=== PATIENT | female | born 1975 | race Caucasian/White ===

== ENCOUNTER 2024-02-19 11:50 | Emergency (ER) | payer SELFPAY ==
[~2024-02-19] VITALS: Ht 172.7 cm; Wt 100.0 kg
[2024-02-19 11:53] VITALS: O2SAT 98
[2024-02-19 12:12] VITALS: TEMP 36.66960
[2024-02-19 14:01] VITALS: BP 135/80; PULSE 85; RESP 19; O2SAT 97
== END 2024-02-19 14:02 | disposition home or self-care (01) ==
LOC: ER 11:50
DX: F10.129 Alcohol abuse with intoxication, unspecified (principal); Y90.9 Presence of alcohol in blood, level not specified
CPT/HCPCS: 99283